=== PATIENT | female | born 1960 | race Two or more races ===

== ENCOUNTER 2021-06-27 09:10 | Emergency (ER) | payer OTHER ==
[2021-06-27 09:24] VITALS: BP 115/73; PULSE 65; TEMP 98.2; BMI 29.0
[2021-06-27] MEDS ORDERED: IBUPROFEN 600 MG TABLET (FP) PO ONE ×2 (09:31→09:33)
== END 2021-06-27 10:40 | disposition home or self-care (01) ==
LOC: JERFT 09:10
DX: S82.831A Other fracture of upper and lower end of right fibula, initial encounter for closed fracture (principal); X50.9XXA Other and unspecified overexertion or strenuous movements or postures, initial encounter
CPT/HCPCS: 73610-TC-RT-FY; 73630-TC-RT-FY; 99283-25

== ENCOUNTER 2021-06-29 17:17 | Emergency (ER) | payer OTHER ==
[2021-06-29 17:28] VITALS: BP 98/62; PULSE 72; TEMP 98.4; BMI 35.9
== END 2021-06-29 19:00 | disposition home or self-care (01) ==
LOC: JER 17:17
DX: S82.891A Other fracture of right lower leg, initial encounter for closed fracture (principal); Y99.9 Unspecified external cause status
CPT/HCPCS: 99282-25